=== PATIENT | female | born 1980 | race Caucasian/White ===

== ENCOUNTER 2024-07-08 09:24 | Outpatient (CLI) | payer OTHER, SELFPAY | END 2024-07-08 09:25 | disposition home or self-care (01) | LOC: NFLDREF 07-09 02:53 | PROVIDERS: Visit Provider Family Medicine | DX: E66.3 Overweight (principal); E28.2 Polycystic ovarian syndrome; M72.2 Plantar fascial fibromatosis; R00.0 Tachycardia, unspecified | CPT/HCPCS: 80053; 80061; 82306; 83525; 84443 ==